=== PATIENT | male | born 1945 | race Caucasian/White ===

== ENCOUNTER 2024-11-06 18:53 | Emergency (ER) | payer OTHER ==
[2024-11-06 19:39] LABS: BASOPHILS ABSOLUTE AUTO 0.04 K/uL (0.00-0.10); BASOPHILS PERCENT AUTO 0.6 % (0.1-1.3); EOSINOPHILS ABSOLUTE AUTO 0.31 K/uL (0.00-0.40); EOSINOPHILS PERCENT AUTO 4.4 % (0.0-5.4); IMMATURE GRAN PERCENT AUTO 0.3 % (0.0-0.7); LYMPHOCYTES ABSOLUTE AUTO 2.02 K/uL (0.8-3.3); LYMPHOCYTES PERCENT AUTO 28.8 % (11.4-47.7); MONOCYTES ABSOLUTE AUTO 0.55 K/uL (0.20-0.90); MONOCYTES PERCENT AUTO 7.8 % (3.3-12.6); NEUTROPHILS ABSOLUTE AUTO 4.07 K/uL (1.0-7.6); NEUTROPHILS PERCENT AUTO 58.1 % (40.0-78.1); PLATELET COUNT,PLT 206 K/uL (130-375); RED BLOOD CELL COUNT 4.73 M/uL (4.14-5.76); WHITE BLOOD CELL COUNT,WBC 7.0 K/uL (3.2-11.0)
[2024-11-06 19:56] LABS: IMMATURE GRAN ABSOLUTE AUTO 0.02 K/uL (0.00-0.23)
[2024-11-06 20:03] LABS: APPEARANCE,URINE CLEAR (CLEAR); GLUCOSE,URINE NEGATIVE (NEGATIVE); OCCULT BLOOD,URINE NEGATIVE (NEGATIVE)
[2024-11-06 20:04] LABS: A/G RATIO 1.2 (1.2-2.2); ALANINE AMINOTRANSFERASE,ALT 26 U/L (12-78); ASPARTATE AMNIOTRANSFERASE,AST 22 U/L (15-37); BILIRUBIN TOTAL 0.5 mg/dL (0.2-1.0); BLOOD UREA NITROGEN,BUN 12 mg/dL (7-18); CARBON DIOXIDE,CO2 29 mmol/L (21-32); CHLORIDE,CL 102 mmol/L (100-108); CREATININE 0.9 mg/dL (0.8-1.3); EST CRCL DRUG DOSING (CG) 68.74 mL/min; ESTIMATED GFR 88 mL/min (>60); GLUCOSE RANDOM 227 mg/dL (74-106); POTASSIUM,K 3.0 mmol/L (3.6-5.2); PROTEIN TOTAL,TP 6.9 g/dL (6.4-8.2); SODIUM,NA 139 mmol/L (140-148); TROPONIN I HIGH SENSITIVITY 7.2 pg/mL (<=60.3)
[2024-11-06 20:13] LABS: EPITHELIAL CELLS,URINE NOT SEEN
[2024-11-06] MEDS: Potassium Chloride 20 MEQ Tab.ER PO ONE (20:28)
[2024-11-06 23:53] LABS: BLOOD UREA NITROGEN,BUN 11.0 mg/dL (7-18); CARBON DIOXIDE,CO2 29.0 mmol/L (21-32); CHLORIDE,CL 103.0 mmol/L (100-108); CREATININE 0.9 mg/dL (0.8-1.3); EST CRCL DRUG DOSING (CG) 68.74 mL/min; ESTIMATED GFR 88.0 mL/min (>60); GLUCOSE RANDOM 140.0 mg/dL (74-106); POTASSIUM,K 3.3 mmol/L (3.6-5.2); SODIUM,NA 141.0 mmol/L (140-148)
[2024-11-07] MEDS ORDERED: Ondansetron 4 MG Tab.DIS PO PRN (01:03)
[2024-11-07] MEDS ORDERED: Ondansetron 4 MG/2 ML SDV IV PRN (01:03)
[2024-11-07 06:28] LABS: PLATELET COUNT,PLT 194.0 K/uL (130-375); RED BLOOD CELL COUNT 4.69 M/uL (4.14-5.76); WHITE BLOOD CELL COUNT,WBC 8.2 K/uL (3.2-11.0)
[2024-11-07 06:49] LABS: CARBON DIOXIDE,CO2 28.0 mmol/L (21-32); CHLORIDE,CL 106.0 mmol/L (100-108); POTASSIUM,K 4.3 mmol/L (3.6-5.2); SODIUM,NA 141.0 mmol/L (140-148)
[2024-11-07 06:50] LABS: BLOOD UREA NITROGEN,BUN 10.0 mg/dL (7-18); CREATININE 0.8 mg/dL (0.8-1.3); EST CRCL DRUG DOSING (CG) 77.33 mL/min; ESTIMATED GFR 91.0 mL/min (>60); GLUCOSE RANDOM 121.0 mg/dL (74-106)
== END 2024-11-07 11:17 | disposition home or self-care (01) ==
LOC: JP.ED 18:53 → JP.2SS 11-07 00:06
PROVIDERS: ADMIT Registered Nurse; ATTEND Internal Medicine
DX: E86.0 Dehydration (principal); E87.6 Hypokalemia; Z88.8 Allergy status to other drugs, medicaments and biological substances; Z79.84 Long term (current) use of oral hypoglycemic drugs; Z79.899 Other long term (current) drug therapy
CPT/HCPCS: 36415; 70450; 71046; 80048; 80053; 81001; 82947; 83605; 83735; 84484; 85025; 85027; 93005; 96360; 96365; 96366; 99222; 99238; 99285; A9270; G0378; J3480; J7030